=== PATIENT | female | born 1950 | race Caucasian/White ===

== ENCOUNTER 2021-06-07 11:24 | Emergency (ER) | payer MEDICARE, SELFPAY ==
[2021-06-07 11:40] VITALS: BP 181/82; PULSE 76; RESP 18; TEMP 36.6; O2SAT 96; BMI 40.2
--- NOTE | 2021-06-07 11:48 | ECG_ITS ---
Test Reason : HYPERTENSION Blood Pressure : / mmHG Vent. Rate : 069 BPM Atrial Rate : 069 BPM P-R Int : 170 ms QRS Dur : 090 ms QT Int : 420 ms P-R-T Axes : 031 -06 013 degrees QTc Int : 450 ms Normal sinus rhythm Nonspecific T wave abnormality Abnormal ECG No previous ECGs available Referred By: Lee Barrera Electronically Signed By:NADIYA HANKS MD
--- NOTE | 2021-06-07 11:49 | ED.GENADULT ---
HPI - General Adult General Chief complaint: General Medical Stated complaint: medication refill Time Seen by Provider: 06/07/21 11:47 Related Data Previous Rx's Medication Instructions Recorded amlodipine 10 mg tablet 10 mg PO DAILY #30 tab 06/08/21 amlodipine 10 mg tablet 10 mg PO DAILY #30 tab 06/08/21 aspirin 81 mg tablet,delayed 81 mg PO DAILY #30 tab 06/08/21 release carvedilol 6.25 mg tablet 6.25 mg PO BID #60 tab 06/08/21 clopidogrel 75 mg tablet (Plavix) 75 mg PO DAILY #30 tab 06/08/21 famotidine 10 mg tablet 10 mg PO DAILY #30 tab 06/08/21 gabapentin 300 mg capsule 300 mg PO BEDTIME #30 cap 06/08/21 isosorbide mononitrate 60 mg 60 mg PO DAILY #30 tab 06/08/21 tablet,extended release 24 hr metformin 500 mg tablet 250 mg PO BID 30 Days #30 tab 06/08/21 prednisone 5 mg tablet 5 mg PO DAILY #30 tab 06/08/21 Allergies Allergy/AdvReac Type Severity Reaction Status Date / Time No Known Allergies Allergy Verified 06/07/21 11:48 [facility] Past Medical History Medical History Diabetes HTN (hypertension) No known health problems Surgical History Stented coronary artery Social History Social History Advance Directives: Yes Advance Directives Information Provided: Yes Advance Directives on File: No Physical Exam Vital Signs: Vital Signs: Last Vital Signs Temp 97.8 F 06/07/21 11:40 Pulse 76 06/07/21 11:40 Resp 18 06/07/21 11:40 BP 181/82 H 06/07/21 11:40 Pulse Ox 96 06/07/21 11:40 BMI result Body Mass Index 40.2 Course Course Course Narrative: Patient presents to the ED for medication refill. patient has been without meds for a while. patient to go to main ED due to elevated blood pressure. Systolic was 192 and repeat was 181. patient is asymptomatic. Rapid medical screening done. Medical Decision Making Lab Data Result diagrams: 06/07/21 12:41 06/07/21 12:41 Labs: Lab Results 06/07/21 06/07/21 06/07/21 Range/Units 12:41 12:41 12:41 WBC 10.5 (4.8-10.8) X10*3/uL RBC 4.65 (4.20-5.50) X10*6/uL Hgb 13.5 (12.0-16.0) g/dl Hct 41.7 (37.0-47.0) % MCV 89.7 (80.0-98.0) fL MCH 29.0 (27.0-33.0) pg MCHC 32.4 (31.0-35.0) g/dl RDW 13.2 (11.0-16.0) % Plt Count 201 (160-400) X10*3/uL MPV 11.0 (9.4-12.3) fL Immature Gran % (Auto) 0.5 H (0.0-0.4) % Neut % (Auto) 71.9 (45-73) % Lymph % (Auto) 19.9 L (20-40) % [place] % (Auto) 5.2 (2-11) % Eos % (Auto) 2.2 (0-4) % Baso % (Auto) 0.3 (0-2) % Lymph # (Auto) 2.1 (1.2-4.9) X10*3/uL [place] # (Auto) 0.5 (0.1-1.2) X10*3/uL Eos # (Auto) 0.2 (0.0-0.4) X10*3/uL Baso # (Auto) 0.0 (0.0-0.2) X10*3/uL Abs Immat Gran (auto) 0.05 H (0.00-0.03) X10*3/uL Absolute Neuts (auto) 7.5 (2.0-8.3) x10*3/uL Absolute Nucleated RBC 0.000 (0.0-0.012) X10*3/uL Nucleated RBC % (auto) 0.0 (0.0-0.2) /100WBC PT 11.9 (9.9-13.0) SEC INR 1.0 (0.9-1.1) APTT 29.0 (24.1-38.0) SEC Sodium 143 (135-145) mmol/L Potassium 3.3 (3.3-5.1) mmol/L Chloride 107 (96-108) mmol/L Carbon Dioxide 25 (22-29) mmol/L Anion Gap 14 (12-20) BUN 16 (9-16) mg/dL Creatinine 0.89 (0.5-1.4) mg/dL Estim Creat Clear Calc 64.0 Estimated GFR > 60 Random Glucose 100 (60-115) mg/dL Calcium 10.0 (8.4-10.2) mg/dL Total Bilirubin 0.6 (0.0-1.0) mg/dL AST 15 (5-31) U/L ALT 13 (0-31) U/L Alkaline Phosphatase 92 (39-117) U/L Troponin I High Sens (<3.5-17.0) ng/L Total Protein 7.5 (6.5-8.0) g/dL Albumin 4.6 (3.5-5.0) g/dL 12/15/ Range/Units 12:41 WBC (4.8-10.8) X10*3/uL RBC (4.20-5.50) X10*6/uL Hgb (12.0-16.0) g/dl Hct (37.0-47.0) % MCV (80.0-98.0) fL MCH (27.0-33.0) pg MCHC (31.0-35.0) g/dl RDW (11.0-16.0) % Plt Count (160-400) X10*3/uL MPV (9.4-12.3) fL Immature Gran % (Auto) (0.0-0.4) % Neut % (Auto) (45-73) % Lymph % (Auto) (20-40) % [place] % (Auto) (2-11) % Eos % (Auto) (0-4) % Baso % (Auto) (0-2) % Lymph # (Auto) (1.2-4.9) X10*3/uL [place] # (Auto) (0.1-1.2) X10*3/uL Eos # (Auto) (0.0-0.4) X10*3/uL Baso # (Auto) (0.0-0.2) X10*3/uL Abs Immat Gran (auto) (0.00-0.03) X10*3/uL Absolute Neuts (auto) (2.0-8.3) x10*3/uL Absolute Nucleated RBC (0.0-0.012) X10*3/uL Nucleated RBC % (auto) (0.0-0.2) /100WBC PT (9.9-13.0) SEC INR (0.9-1.1) APTT (24.1-38.0) SEC Sodium (135-145) mmol/L Potassium (3.3-5.1) mmol/L Chloride (96-108) mmol/L Carbon Dioxide (22-29) mmol/L Anion Gap (12-20) BUN (9-16) mg/dL Creatinine (0.5-1.4) mg/dL Estim Creat Clear Calc Estimated GFR Random Glucose (60-115) mg/dL Calcium (8.4-10.2) mg/dL Total Bilirubin (0.0-1.0) mg/dL AST (5-31) U/L ALT (0-31) U/L Alkaline Phosphatase (39-117) U/L Troponin I High Sens 8.5 (<3.5-17.0) ng/L Total Protein (6.5-8.0) g/dL Albumin (3.5-5.0) g/dL Discharge Plan Discharge Clinical Impression: Medication refill Patient Disposition: Left Without Being Seen Interventions: LWBS Worksheet Last Done: 06/07/21 21:50 Discharge Date/Time: 06/07/21 21:51
[2021-06-07 12:52] LABS: Basophils Percent Auto 0.3 % (0-2); Eosinophils Absolute Auto 0.2 X10*3/uL (0.0-0.4); Eosinophils Percent Auto 2.2 % (0-4); Hematocrit 41.7 % (37.0-47.0); Hemoglobin 13.5 g/dl (12.0-16.0); Imm Gran Abs Auto 0.05 X10*3/uL (0.00-0.03); Imm Gran Pct Auto 0.5 % (0.0-0.4); Lymphocytes Absolute Auto 2.1 X10*3/uL (1.2-4.9); Lymphocytes Percent Auto 19.9 % (20-40); MANUAL DIFF FLAG NO; Mean Corpuscular HGB Conc 32.4 g/dl (31.0-35.0); Mean Corpuscular Volume 89.7 fL (80.0-98.0); Monocytes Absolute Auto 0.5 X10*3/uL (0.1-1.2); Monocytes Percent Auto 5.2 % (2-11); Neutrophils Absolute Auto 7.5 x10*3/uL (2.0-8.3); Neutrophils Percent Auto 71.9 % (45-73); Platelet Count 201 X10*3/uL (160-400); Red Blood Count 4.65 X10*6/uL (4.20-5.50); Red Cell Distribution Width 13.2 % (11.0-16.0); White Blood Count 10.5 X10*3/uL (4.8-10.8)
[2021-06-07 12:59] LABS: Prothrombin Time 11.9 SEC (9.9-13.0)
[2021-06-07 13:11] LABS: Alanine Aminotransferase 13 U/L (0-31); Albumin Level 4.6 g/dL (3.5-5.0); Alkaline Phosphatase 92 U/L (39-117); Anion Gap 14 (12-20); Aspartate Amino Transferase 15 U/L (5-31); Bilirubin Total 0.6 mg/dL (0.0-1.0); Blood Urea Nitrogen 16 mg/dL (9-16); Carbon Dioxide 25 mmol/L (22-29); Chloride 107 mmol/L (96-108); Estimated Glomerular Filt Rate > 60; Glucose Random 100 mg/dL (60-115); Potassium 3.3 mmol/L (3.3-5.1); Sodium 143 mmol/L (135-145); Total Protein 7.5 g/dL (6.5-8.0)
[2021-06-07 13:17] LABS: Troponin-I High Sensitivity 8.5 ng/L (<3.5-17.0)
== END 2021-06-07 21:51 | disposition left against medical advice (07) ==
PROVIDERS: Physician Assistant; Emergency Provider Emergency Medicine; PCP Internal Medicine
DX: Z76.0 Encounter for issue of repeat prescription (principal); E11.9 Type 2 diabetes mellitus without complications; I10 Essential (primary) hypertension
CPT/HCPCS: 36415; 80053; 84484; 85025; 85610; 85730; 93005; 99283

== ENCOUNTER 2021-06-08 09:19 | Emergency (ER) | payer MEDICARE, SELFPAY ==
[2021-06-08 09:23] VITALS: BP 156/98; PULSE 83; RESP 18; TEMP 36.6; O2SAT 97; BMI 41.1
--- NOTE | 2021-06-08 09:42 | ED.RECABL ---
HPI - Recheck/Abnormal Lab/Rx General Chief Complaint: General Medical Stated Complaint: medication refill Time Seen by Provider: 06/08/21 09:40 Source: patient and family Mode of arrival: ambulatory Limitations: language barrier (Nauruan-speaking) History of Present Illness HPI narrative: 70-year-old female presenting with her daughter at bedside with request for medication refill for all her medications that she has not been able to take for the past week due to she ran out of her medications. She recently moved from [place] to the area and plans to stay in the area she has a PCP appointment on August 03. She denies any other symptoms complaints or concerns at this time including cardiac or diabetic related complaints. MD complaint: medication refill request Returns today for: request for prescription Symptoms since prior visit: no new symptoms Associated symptoms: none Related Data Previous Rx's Medication Instructions Recorded amlodipine 10 mg tablet 10 mg PO DAILY #30 tab 06/08/21 amlodipine 10 mg tablet 10 mg PO DAILY #30 tab 06/08/21 aspirin 81 mg tablet,delayed 81 mg PO DAILY #30 tab 06/08/21 release carvedilol 6.25 mg tablet 6.25 mg PO BID #60 tab 06/08/21 clopidogrel 75 mg tablet (Plavix) 75 mg PO DAILY #30 tab 06/08/21 famotidine 10 mg tablet 10 mg PO DAILY #30 tab 06/08/21 gabapentin 300 mg capsule 300 mg PO BEDTIME #30 cap 06/08/21 isosorbide mononitrate 60 mg 60 mg PO DAILY #30 tab 06/08/21 tablet,extended release 24 hr metformin 500 mg tablet 250 mg PO BID 30 Days #30 tab 06/08/21 prednisone 5 mg tablet 5 mg PO DAILY #30 tab 06/08/21 Allergies Allergy/AdvReac Type Severity Reaction Status Date / Time No Known Allergies Allergy Verified 06/07/21 11:48 Review of Systems Review of Systems: Constitutional : No Weight loss, No Fever, No Chills, No Night Sweats, No Fatigue, No Malaise ENT/Mouth : No Hearing loss, No Ear Pain, No Nasal Congestion, No Sinus Pain, No Hoarseness, No sore throat, No Rhinorrhea, No Swallowing Difficulty Eyes: No Eye Pain, No Swelling, No Redness, No Foreign Body, No Discharge, No Vision Changes Cardiovascular : No Chest Pain, No SOB, No Dyspnea on Exertion, No Orthopnea, No Edema, No Palpitations Respiratory : No Cough, No Sputum, No Wheezing, No Smoke Exposure, No Dyspnea Gastrointestinal : No Nausea, No Vomiting, No Diarrhea, No Constipation, No abdominal Pain, No Hematochezia, No Melena Genitourinary : no irregular bleeding, No Dysuria, No Urinary Frequency, No Hematuria, No Urinary Incontinence, No Urgency, No Flank Pain, No Urinary Flow Changes, No Hesitancy Musculoskeletal : No joint pain, No Myalgias, No Joint Swelling Skin : No Skin Lesions, No rash Neuro : No Weakness, No Numbness, No Paresthesias, No Loss of Consciousness, No Dizziness, No Headache Psych : No Anxiety/Panic, No Depression, No SI/HI/AH/VH, No Social Issues, Heme/Lymph: No Bruising, No Bleeding,No Lymphadenopathy Endocrine : No Polyuria, No Polydipsia, No Temperature Intolerance Yes all other systems are reviewed and are negative [facility] Past Medical History Attestation statement: The following information was validated with the patient. Medical History Diabetes HTN (hypertension) No known health problems Surgical History Stented coronary artery Social History Social History Advance Directives: Yes Advance Directives Information Provided: Yes Advance Directives on File: No Physical Exam Vital Signs: Vital Signs: Last Vital Signs Temp 97.8 F 06/08/21 09:23 Pulse 83 06/08/21 09:23 Resp 18 06/08/21 09:23 BP 156/98 H 06/08/21 09:23 Pulse Ox 97 06/08/21 09:23 BMI result Body Mass Index 41.1 vital signs have been reviewed as normal and appeared to be correct. Blood pressure normal Heart rate normal. Respiration rate normal. Temperature normal. Oxygen saturation normal. Appearance: Alert. Oriented X3. No acute distress. Head: Normal external exam. Normocephalic. Atraumatic. Eyes: PERRLA. EOMI. Conjunctiva and sclera normal. Eyelids normal. ENT: Pharynx normal. Uvula midline. Moist mucous membranes. Neck: Normal inspection. Neck supple. FROM. CVS: Normal heart rate and rhythm. Respiratory: No respiratory distress. Painless inspiration. Skin: Skin warm and dry. Normal skin color. Normal skin turgor. No rashes/lesions/lacerations noted. Extremities: No lower extremity edema. Extremities exhibit normal range of motion. Extremities nontender. Neuro: Oriented X 3. No motor deficit. No sensory deficit. Reflexes normal. Normal steady gait. No focal neuro deficits noted. Vascular: + radial pulses/+ 2 distal pedal pulses/+2 dorsalis pedis b/l. Normal cap refill. No cyanosis noted to upper extremity nails and lower extremity toes nails. Course Course Course Narrative: 70-year-old female requesting medication refill for her medications has a PCP appointment on August 03. Denies any symptoms at this time. Will refill medications for at least 2 months and have her follow-up with her PCP as scheduled on August 03. Patient and daughter at bedside understands agrees this plan. MDM - Recheck/Abnormal Lab/Rx Medical Records Attestation: I reviewed the patient's medical records. Discharge Plan Discharge Clinical Impression: Medication refill Patient Disposition: Home, Self-Care Instructions: Medicine Refill (ED) Prescriptions: New clopidogrel [Plavix] 75 mg tablet 75 mg PO DAILY Qty: 30 RF: 2 amlodipine 10 mg tablet 10 mg PO DAILY Qty: 30 RF: 2 gabapentin 300 mg capsule 300 mg PO BEDTIME Qty: 30 RF: 2 isosorbide mononitrate 60 mg tablet extended release 24 hr 60 mg PO DAILY Qty: 30 RF: 2 carvedilol 6.25 mg tablet 6.25 mg PO BID Qty: 60 RF: 2 famotidine 10 mg tablet 10 mg PO DAILY Qty: 30 RF: 2 aspirin 81 mg tablet,delayed release (DR/EC) 81 mg PO DAILY Qty: 30 RF: 2 prednisone 5 mg tablet 5 mg PO DAILY Qty: 30 RF: 2 amlodipine 10 mg tablet 10 mg PO DAILY Qty: 30 RF: 2 metformin 500 mg tablet 250 mg PO BID 30 Days Qty: 30 RF: 2 Referrals: Román Simmons MD [Primary Care Provider] - 2 days Print Language: Nauruan
== END 2021-06-08 10:04 | disposition home or self-care (01) ==
PROVIDERS: Emergency Provider Emergency Medicine; PCP Internal Medicine
DX: Z76.0 Encounter for issue of repeat prescription (principal); E11.9 Type 2 diabetes mellitus without complications; I10 Essential (primary) hypertension
CPT/HCPCS: 99282; 99283